=== PATIENT | female | born 1995 | race Hispanic/Latino ===

== ENCOUNTER 2022-05-30 13:57 | Emergency (ER) | payer MEDICAID ==
[~2022-05-30] VITALS: Ht 154.9 cm; Wt 68.0 kg
[2022-05-30 14:38] VITALS: BP 111/74
[2022-05-30 15:11] LABS: BASOPHILS % (AUTO) 0.2 % (0.0-5.0); EOSINOPHILS % (AUTO) 0.8 % (0.0-8.0); HEMATOCRIT 41.7 % (36-48); LYMPHOCYTES % (AUTO) 15.6 % (21.0-51.0); MEAN CORPUSCULAR HGB CONC 30.2 g/dL (32.0-36.0); MEAN CORPUSCULAR VOLUME 72.6 fL (79-99); MONOCYTES % (AUTO) 6.1 % (3.0-13.0); NEUTROPHILS % (AUTO) 76.9 % (40.0-77.0); PLATELET COUNT (AUTO) 341 K/uL (130-400); RED BLOOD CELL COUNT(AUTO) 5.74 MIL/uL (4.00-5.50); WHITE BLOOD COUNT (AUTO) 13.6 K/uL (4.8-10.8)
[2022-05-30 15:19] LABS: CREATININE 0.6 mg/dL (0.5-1.5); POTASSIUM 3.9 mmol/L (3.5-5.1)
[2022-05-30 15:23] LABS: ALBUMIN 3.7 g/dL (3.5-5.0); TOTAL PROTEIN, SERUM 7.3 g/dL (6.0-8.3)
[2022-05-30] MEDS ORDERED: TYL3LL PO (17:51)
[2022-05-30] MEDS ORDERED: APAP/CODEINE 120/12MG 5ML PO PRN (18:00)
== END 2022-05-30 17:56 | disposition home or self-care (01) ==
LOC: EDH 13:57
DX: O03.4 Incomplete spontaneous abortion without complication (principal); Z3A.08 8 weeks gestation of pregnancy
CPT/HCPCS: 36415; 76856; 80053; 84702; 85025; 86850; 86900; 86901

== ENCOUNTER 2024-05-11 21:57 | Emergency (ER) | payer BC, MEDICAID ==
[~2024-05-11] VITALS: Ht 154.9 cm; Wt 78.0 kg
[~2024-05-11 21:57] MED LIST: TYL3LL PO
--- NOTE | 2024-05-11 23:17 | ERN ---
ED Note History of Present Illness Stated Complaint: GET FOOD STUCK IN THROAT Chief Complaint: Other Problems Time Seen by MD: 22:10 Time Seen by Midlevel: 22:10 Dictation: The patient is a 29-year-old female with no past medical history who presents to the emergency department with complaints of trouble swallowing for the last two years. Patient reports that symptoms have gotten worse and are intermediate Denies any cough or shortness of breath. Denies any other symptoms. Allergies: Coded Allergies: No Known Allergies (Unverified Allergy, Unknown, 05/30/22) Home Meds Active Scripts Acetaminophen with Codeine (Tylenol with Codeine Elixir) 12.5 Ml Elixir, 10 ML PO TIDP PRN for SEVERE PAIN (7-10), #90 ML 0 Refills Prov:YARON GOODE MD 05/30/22 Past Medical History Past Medical History: No Pertinent History Surgical History: None Social History: Other LMP: Apr 27, 2024 : 1 Para: 9 Aborts: 1 RN Note Reviewed/Agreed w/PFSH: Yes Review of System Dictation Constitutional: Negative for fever,chills, and weight loss Eyes: Negative for injury, pain,redness, and discharge ENT: Negative for injury,pain or swelling positive for trouble swallowing Cardiovascular: Negative for chest pain, palpitations, and edema Respiratory: Negative for shortness of breath, cough, and wheezing, Abdomen/GI: Negative for abdominal pain, nausea, vomiting, diarrhea, and constipation Back: Negative for injury and pain : Negative for injury, bleeding and discharge MS/Extremity: Negative for injury and deformity Skin: Negative for rash, and discoloration Neuro: Negative for headache, weakness, numbness, tingling, and seizure Psych: Negative for suicide ideation, homicidal ideation, and hallucinations Initial Vital Sign VS Vital Signs Date Time Temp Pulse Resp B/P (MAP) Pulse Ox O2 Delivery O2 Flow Rate FiO2 05/11/24 21:58 99.0 74 20 132/94 100 Room Air 05/11/24 22:00 0 21 Physical Exam Dictation Vital Signs reviewed General Appearance: Alert, oriented x 3, no acute distress, well developed, nourished. Head and Face: non-traumatic. Eyes: PERRL, pink conjunctivas, eyelid no trauma, anterior chamber with arcus senilis. Ears: Pinnas intact and no signs of trauma or erythema ear canals clear and no discharge TM no erythema Nose: No discharge, no bleeding. Oropharynx: Mouth normal, tongue pink. pharynx clear,no erythema, tonsils no exudates, no abscesses noted, mucous membrane moist Neck: Supple, non-tender, no thyromegaly, no masses, no JVD, no bruits Breast:Deferred Chest:No tenderness, no crepitus, no paradoxical movement, no retractions Lungs:Clear, well-ventilated, symmetric, no rales, no wheezing, no rhonchi, no stridor, good breath sounds bilaterally Heart: Regular rate, regular rhythm, no murmur, no gallops Vascular: no peripheral edema, Abdomen: Soft, positive bowel sounds, nondistended, no guarding, nontender, no rebound, no masses no hepatomegaly, no splenomegaly, no Day's sign, no hernias. Rectal: Deferred Genital: Deferred Neurological: Normal speech, motor function intact, sensory function intact Musculoskeletal: Neck nontender, full range of motion, back nontender, full range of motion, Extremities: nontender, full range of motion Skin: Color pink, dry, no turgor, no rash, no lacerations, no abrasions, no contusions. Lymphatic: Deferred Results (Laboratory/Radiology) Labs Reviewed?: Yes ED Course ED Course Vital Signs Date Time Temp Pulse Resp B/P (MAP) Pulse Ox O2 Delivery O2 Flow Rate FiO2 05/11/24 22:00 97.9 78 20 124/65 97 Room Air* 0 21 05/11/24 21:58 99.0 74 20 132/94 100 Room Air Medical Decision Making MDM The patient is a 29-year-old female with no past medical history who presents to the emergency department with complaints of trouble swallowing for the last two years. Patient reports that symptoms have gotten worse and are intermediate Denies any cough or shortness of breath. Denies any other symptoms. Patient reports trouble swallowing for the last two years. Reports she has has an appointment with her primary doctor but has not follow up with it out. Reports that there are times where she is able to swallow okay and then there is times where she feels that food gets stuck in her throat. Reports an episode prior to arrival but reports she was able to clear her throat. Patient denies any shortness of breath or cough. No nausea or vomiting. Patient with a nontender abdomen. No foreign body identified in throat. No swelling or masses noted to throat. No drooling. Patient instructed to follow up with [facility]ol[facility] roenterologist. This appears to be a chronic thing. Patient currently asymptomatic, in no acute distress, nontoxic appearing, neurologically intact. Differential diagnosis: Gastritis, dysphagia, foreign body Need for hospitalization: Patient does not meet criteria for hospitalization. There are no social concerns with this patient. DX & DISP Disposition: Discharge Departure Impression: Primary Impression: Dysphagia Condition: Stable Additional Instructions: Please follow up with your primary doctor in 1-2 days. You can also follow up with roller coaster operator for further evaluation. If symptoms worsen please return to ER. FOLLOW-UP WITH PRIMARY CARE PROVIDER IN 1 TO 2 DAYS. TAKE MEDICATIONS DIRECTED HERE IN THE EMERGENCY ROOM. OKAY TO CONTINUE HOME MEDICATIONS UNLESS OTHERWISE DISCUSSED DURING YOUR VISIT IN THE EMERGENCY ROOM TODAY. RETURN TO YOUR NEAREST EMERGENCY ROOM IF SYMPTOMS WORSEN OR IF THERE IS NO IMPROVEMENT. CALL 911 IF YOU NEED IMMEDIATE ASSISTANCE. TAKE TYLENOL OR MOTRIN OV [id number] NEEDED AND IF NO CONTRAINDICATIONS ARE PRESENT. INCREASE ORAL HYDRATION. A WOUND CULTURE OR URINE CULTURE WAS ORDERED HERE IN THE EMERGENCY ROOM DEPARTMENT PLEASE FOLLOW-UP WITH PRIMARY CARE PROVIDER AND ADVISE THEM TO GET REPEAT PORTS FROM OUR FACILITY. IF YOU HAD ANY YULISA WRAP/SPLINTS THAT WERE APPLIED HERE, PLEASE DO NOT REMOVE THEM UNTIL YOU SEE YOUR PRIMARY CARE OR SPECIALTY. Referrals: SELF,REFERRAL (PCP) VENECIA LALA MD Time of Disposition: 23:14 I have reviewed the case, and I agree with, Diagnosis and Plan PINKY DELGADO [facility] May 11, 2024 23:17
[2024-05-11 23:19] VITALS: BP 121/65; PULSE 74; RESP 18; TEMP 97.1; O2SAT 97
== END 2024-05-11 23:27 | disposition home or self-care (01) ==
LOC: EDH 21:57
DX: R13.10 Dysphagia, unspecified (principal); Z79.899 Other long term (current) drug therapy
CPT/HCPCS: 99282